=== PATIENT | male | born 1930 | race Caucasian/White ===

== ENCOUNTER 2017-04-10 10:56 | Inpatient (IN) | payer MEDICARE, BC ==
[~2017-04-10] VITALS: Ht 182.9 cm; Wt 72.7 kg
[~2017-04-10 10:56] MED LIST: ASPI-621 PO; CEFT2FRO2 IV; FURO40TA6 PO; HYDR-3144 PO; LEVE500T53 PO; MAGN400O4 PO; METR500T PO; NYST1000 PO; NYST60PO TP; OMEP-110 PO; POTA25TA4 PO; TIOT18CA INH; TRAM50TA2 PO
[2017-04-10] MEDS ORDERED: OLOP5DRO OP (11:13)
[2017-04-10] MEDS ORDERED: IPRA3AMP PO (11:13)
[2017-04-10] MEDS ORDERED: SODIUM CHLORIDE FLUSH 10ML SYR IVF ONE (12:00)
[2017-04-10 13:00] LABS: ABG COLLECTION SITE RIGHT RADIAL; COLLATERAL CIRCULATION TESTING NORMAL
[2017-04-10 13:18] LABS: ASPARTATE AMINO TRANSFERASE 20 U/L (15-37); BLOOD UREA NITROGEN 19 mg/dL (7-18)
[2017-04-10 13:43] LABS: IS PT STATUS REG ER OR PRE ER? YES
[2017-04-10] MEDS ORDERED: BISACODYL 10 MG SUPP PR PRN (16:00)
[2017-04-10] MEDS ORDERED: ONDANSETRON ODT 4 MG PO PRN (16:00)
[2017-04-10] MEDS ORDERED: DOCUSATE 100 MG CAPSULE PO PRN (16:00)
[2017-04-10] MEDS ORDERED: ONDANSETRON 2MG/ML, 2ML IVPush PRN (16:00)
[2017-04-10] MEDS ORDERED: POLYETHYLENE GLYCOL 17 GM PACKET PO PRN (16:00)
[2017-04-10] MEDS ORDERED: ALBUTEROL/IPRATROPIUM 2.5MG/0.5MG, 3 ML ONE (16:53)
[2017-04-10] MEDS: IPRATROPIUM 0.5 MG/2.5 ML INHA NPPB SCH ×3 (17:04→23:29)
[2017-04-10] MEDS ORDERED: GADOBUTROL 7.5 MMOL/7.5 ML PFS ONE (17:25)
[2017-04-10] MEDS ORDERED: ALBUTEROL SULFATE 2.5 MG/3 ML NPPB PRN (17:30)
[2017-04-10 18:00] VITALS: BP 113/68
[2017-04-10] MEDS: LEVETIRACETAM 500 MG TABLET PO SCH (22:45)
[2017-04-10] MEDS: NAPHAZOLINE/PHENIRAMINE OPHTH OP SCH (22:46)
[2017-04-11 01:08] VITALS: BP 101/58
[2017-04-11] MEDS: IPRATROPIUM 0.5 MG/2.5 ML INHA NPPB SCH ×6 (03:00→20:31)
[2017-04-11] MEDS: ASPIRIN 81 MG TABLET EC PO SCH (06:03)
[2017-04-11 06:38] VITALS: BP 114/76
[2017-04-11 06:41] LABS: BLOOD UREA NITROGEN 17 mg/dL (7-18)
[2017-04-11] MEDS: LEVETIRACETAM 500 MG TABLET PO SCH ×2 (09:02→21:49)
[2017-04-11] MEDS: NAPHAZOLINE/PHENIRAMINE OPHTH OP SCH ×2 (09:02→21:49)
[2017-04-11 12:58] VITALS: BP 113/76
[2017-04-11 19:22] VITALS: BP 118/82
[2017-04-12 01:32] VITALS: BP 111/76
[2017-04-12] MEDS: IPRATROPIUM 0.5 MG/2.5 ML INHA NPPB SCH ×4 (02:15→21:45)
[2017-04-12] MEDS: ASPIRIN 81 MG TABLET EC PO SCH (06:38)
[2017-04-12 07:14] VITALS: BP 111/76
[2017-04-12] MEDS: LEVETIRACETAM 500 MG TABLET PO SCH ×2 (11:00→21:22)
[2017-04-12] MEDS: NAPHAZOLINE/PHENIRAMINE OPHTH OP SCH ×3 (11:00→21:22)
[2017-04-12 14:08] VITALS: BP 127/77
[2017-04-12 20:08] VITALS: BP 96/60
[2017-04-13 00:15] VITALS: BP 104/59
[2017-04-13] MEDS: IPRATROPIUM 0.5 MG/2.5 ML INHA NPPB SCH ×4 (03:00→21:00)
[2017-04-13] MEDS: ASPIRIN 81 MG TABLET EC PO SCH (05:48)
[2017-04-13 07:20] VITALS: BP 112/71
[2017-04-13] MEDS: LEVETIRACETAM 500 MG TABLET PO SCH ×2 (09:40→21:14)
[2017-04-13] MEDS: NAPHAZOLINE/PHENIRAMINE OPHTH OP SCH ×2 (09:40→22:06)
[2017-04-13 19:30] VITALS: BP 88/57
[2017-04-13 20:26] VITALS: BP 96/49
[2017-04-14 02:00] VITALS: BP 90/56
[2017-04-14] MEDS: IPRATROPIUM 0.5 MG/2.5 ML INHA NPPB SCH ×4 (03:00→21:00)
[2017-04-14 05:35] VITALS: BP 101/62
[2017-04-14] MEDS: ASPIRIN 81 MG TABLET EC PO SCH (05:35)
[2017-04-14 07:14] VITALS: BP 100/60
[2017-04-14] MEDS: LEVETIRACETAM 500 MG TABLET PO SCH ×2 (10:16→22:04)
[2017-04-14] MEDS: NAPHAZOLINE/PHENIRAMINE OPHTH OP SCH ×2 (10:16→21:55)
[2017-04-14] MEDS: SODIUM CHLORIDE 0.9% 1,000 ML IV SCH ×2 (10:17→21:56)
[2017-04-14 13:59] VITALS: BP 98/63
[2017-04-14 20:00] VITALS: BP 111/70
[2017-04-14] MEDS ORDERED: LEVETIRACETAM 1,000 MG in SODIUM CHLORIDE 0.9% 100 ML IV ONE (22:30)
[2017-04-15 02:00] VITALS: BP 120/79
[2017-04-15] MEDS: IPRATROPIUM 0.5 MG/2.5 ML INHA NPPB SCH ×3 (03:00→14:41)
[2017-04-15] MEDS: ASPIRIN 81 MG TABLET EC PO SCH (05:42)
[2017-04-15 06:56] VITALS: BP 129/89
[2017-04-15] MEDS: NAPHAZOLINE/PHENIRAMINE OPHTH OP SCH (08:51)
[2017-04-15] MEDS: LEVETIRACETAM 500 MG TABLET PO SCH (08:51)
[2017-04-15] MEDS: SODIUM CHLORIDE 0.9% 1,000 ML IV SCH (11:29)
[2017-04-15 12:27] VITALS: BP 122/82
== END 2017-04-15 16:11 | DRG 391 ==
LOC: ED 12:00 → EDIP 13:51 → OBSVTOIN 16:10 → 3NE 17:55
PROVIDERS: ATTEND Internal Medicine
PROC: 0T9B70Z Drainage of Bladder with Drainage Device, Via Natural or Artificial Opening (ICD-10-PCS; principal; 2017-04-10)
DX: R13.10 Dysphagia, unspecified (principal); E43 Unspecified severe protein-calorie malnutrition; J96.11 Chronic respiratory failure with hypoxia; G40.209 Localization-related (focal) (partial) symptomatic epilepsy and epileptic syndromes with complex partial seizures, not intractable, without status epilepticus; M48.54XA Collapsed vertebra, not elsewhere classified, thoracic region, initial encounter for fracture; M48.56XA Collapsed vertebra, not elsewhere classified, lumbar region, initial encounter for fracture; J98.11 Atelectasis; R62.7 Adult failure to thrive; F03.90 Unspecified dementia, unspecified severity, without behavioral disturbance, psychotic disturbance, mood disturbance, and anxiety; G93.89 Other specified disorders of brain; I48.0 Paroxysmal atrial fibrillation; I10 Essential (primary) hypertension; J44.9 Chronic obstructive pulmonary disease, unspecified; Z87.891 Personal history of nicotine dependence; Z68.21 Body mass index [BMI] 21.0-21.9, adult; Z86.61 Personal history of infections of the central nervous system
CPT/HCPCS: 36415; 36600; 70450; 70553; 71010; 80048; 80053; 81003; 82140; 82803; 83605; 83690; 83880; 84145; 84484; 85025; 85610; 85651; 86140; 87040; 94640; 99285; A9585; G0378; J1953; J7644; 92523-GN; J7030